=== PATIENT | male | born 1970 | race Caucasian/White ===

== ENCOUNTER 2017-11-14 10:43 | Day surgery (SDC) | payer OTHER ==
--- NOTE | 2017-11-12 11:50 | EKG ---
Test Date: 2017-11-11 Test Time: 17:09:40 Court Bailiff: ACACIA MEASUREMENT RESULTS: Intervals: Rate: 62 NC: 166 QRSD: 116 QT: 404 QTc: 410 [place]: P: 51 NC: 166 QRS: 13 T: 33 INTERPRETIVE STATEMENTS: Normal sinus rhythm Possible Left atrial enlargement Borderline ECG No previous ECG available for comparison Electronically Signed On 11-12-17 11:46:39 CDT by Iam Jacobson
[2017-11-14] MEDS ORDERED: PROPOFOL 200 MG/20 ML VIAL IV ONE (10:55)
[2017-11-14] MEDS ORDERED: DEXAMETHASONE 10 MG/ML VIAL ONE (10:55)
[2017-11-14] MEDS ORDERED: ROCURONIUM 50 MG/5 ML VIAL IV ONE (10:55)
[2017-11-14] MEDS ORDERED: MIDAZOLAM HCL 2 MG/2 ML INJ ONE (10:56)
[2017-11-14] MEDS ORDERED: LIDOCAINE 2% MPF 5 ML VIAL ONE (10:56)
[2017-11-14] MEDS ORDERED: ONDANSETRON HCL 40 MG/20 ML VIAL ONE (10:56)
[2017-11-14] MEDS ORDERED: FENTANYL CITR 250 MCG/5 ML ONE (10:56)
[2017-11-14] MEDS: OXYMETAZOLINE HCL 0.05% 30ML NAS ONE ×5 (11:08→12:24)
[2017-11-14] MEDS: NA CHLORIDE 0.9% 1,000 ML ONE ×2 (11:13→11:48)
[2017-11-14] MEDS ORDERED: LIDOCAINE 1% W/EPI 1:100,000 MDV 50 ML VIAL ONE (11:52)
[2017-11-14] MEDS ORDERED: OXYMETAZOLINE HCL 0.05% 30ML NAS ONE ×3 (11:52→13:39)
[2017-11-14] MEDS ORDERED: NA CHLORIDE 0.9% 500 ML ONE (11:52)
[2017-11-14] MEDS ORDERED: GLYCOPYRROLATE 0.2 MG/ML SYR ONE (12:43)
[2017-11-14] MEDS ORDERED: Ringers Lactate 1,000 ML IV ONE (12:46)
[2017-11-14] MEDS ORDERED: MORPHINE 4 MG/ML SYR ONE (14:23)
[2017-11-14] MEDS ORDERED: HYDROCODONE/APAP 5/325 MG TAB ONE (15:14)
--- NOTE | 2017-11-15 23:28 | OP ---
Date of Procedure: 11/14/2017 Surgeon: Jennifer Irwin MD Preoperative Diagnoses: Chronic recurrent acute sinusitis, mikey bullosa, nasal congestion and obst ruction. Postoperative Diagnoses: Chronic recurrent acute sinusitis, mikey bullosa, nasal congestion and obs truction. Procedure: Nasal endoscopy with bilateral frontal sinusotomy; nasal endoscopy with bilateral anterio r ethmoidectomy; nasal endoscopy with bilateral maxillary sinusotomy, use of CT navigation, cranial, extradural. Indication For Procedure: Charles Toney presented with symptoms of chronic rhinosinusitis and na roxanne congestion. The post treatment CT of the sinuses demonstrated accessory maxillary os, mild anter ior ethmoid sinusitis, and obstruction of the frontal recess. 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 The risks, benefits, and alternatives to the pro cedure were discussed with the patient who agreed to proceed. The patient did not reveal he was taki ng aspirin during his initial intake and evaluations and was asked to stop aspirin at his preop visit 48 hours prior to his surgery. Description Of Procedure: The patient was brought to the operating room. He was placed under genera l anesthesia via oral endotracheal tube. The head of bed was turned to 90 degrees. The nasal hairs were trimmed and the nasal cavity was packed with Afrin-soaked pledgets. The [employer] navigation was brought into the field. The headpiece was secured to the patient's forehead. The laser pointer was used to perform registration and accuracy was confirmed by [id number] matching including the tip of the nose, the base of the columella, the glabella, and the bilateral medial and lateral canthi, a nd accuracy was felt to be very good. The patient was then draped in the standard fashion for sinus surgery. Nasal pledgets were removed and a 0-degree rigid endoscope was used to perform a nasal endo scopy. On the left, there was a low prominent maxillary crest. The inferior turbinates were unremar kable. The middle turbinate was quite wide and mildly edematous consistent with preoperative finding s of a large mikey bullosa. On the left side, there was a high bony septal deviation, but the devia tion overall was moderate and did not appear likely to inhibit sinus surgery in significant way. 1% lidocaine with epinephrine was injected into the middle turbinate and lateral wall. Attention was fi rst turned to the left side. A sickle knife was used to incise through the mikey bullosa. Endoscop ic scissors and a through-cutting 45 degree Blakesley was used to remove the lateral portion of the m iddle turbinates mikey. It was noted during this initial procedure that the patient has greater natalie n average oozing consistent with recent aspirin use. The middle meatus was packed with Afrin-soaked pledgets and left in place for several minutes. The pledgets were removed and then microdebrider was used to refine the cut edges from the mikey bullosa. The uncinate process was then visualized and examined. It appears somewhat lateralized and there was a moderate-sized natural accessory os. A ma xillary seeker was used to carefully palpate and medialize the uncinate. A backbiter was then used t o remove the uncinate process along with a 90-degree Blakesley. A 90-degree Blakesley and a microdeb rider was used to remove the tissue between the natural and accessory os in order to prevent recircul ation. After adequate removal, the area was packed with Afrin-soaked pledgets to provide hemostasis. The right side was then examined. The mikey bullosa on the right side was relatively small. A Fr eer was used to medialize the middle turbinate with fracturing of the mikey in order to reduce the s ize of the middle turbinate. Overall, the front portion of the middle turbinate was somewhat floppy creating mild difficulty during various portions of the dissection. The middle meatus was packed wit h Afrin-soaked pledgets and this was allowed to rest well while the further dissection on the left si de proceeded. The packing on the left side was removed and the ethmoid partitions were divided using a curette. Partitions were removed using a straight 45 and 90-degree Blakesley. During dissection, the navigation system was used to guide further dissections, particularly along the lamina. The ant erior portion of the skull base was visualized after removal of ethmoid partitions. Using a 30 and t hen 70-degree endoscopes, the frontal recess region was visualized but was difficult to palpate the t rue frontal recess. The [employer] balloon was then brought as a tool. The small lighted guidewire wa s passed with careful palpation through the frontal recess illuminating the frontal sinus brilliantly . The balloon was then dilated and held in place for several minutes. The balloon was then deflated and the 70-degree endoscope was used to visualize this area. There was a small ethmoid cell which w as more lateral and the true frontal recess was located more medially than initially anticipated. Sm all bony partitions between the ethmoid cell and the true frontal recess were removed using Giraffe f orceps. The ethmoid cavity was then packed with Afrin-soaked pledgets and attention was turned to th e right side. Dissection on the right side was complicated by the narrowness of the nasal cavity, th e floppiness of the right middle turbinate, and the patient's recent ingestion of aspirin contributin g to increased degree of oozing. The right side was noted to have a moderate-sized accessory os just inferior to the uncinate process. The uncinate process was carefully medialized using a maxillary s eeker. The backbiter and 90-degree Blakesley were used to remove the uncinate process and tissue bet ween the natural os and accessory os was removed using a 90-degree Blakesley and microdebrider. The ethmoid cavity was then carefully dissected with a curette and bony partitions were removed from the anterior ethmoid cavity using a straight 45 and 90-degree Blakesley. The 30 and 70-degree endoscopes were then used to help remove ethmoid partitions working towards the frontal recess. The frontal re cess was carefully dissected. The Entellus balloon device was used to confirm patency on the CT scan . The superiormost aspect of the frontal recess was noted to be narrowed due to the presence of narr ow distance between the posterior tragal or skull base and a superiorly based frontal beak like forma tion. Due to the narrowness of this, balloon dilation was not performed due to concern for disruptio n of the skull base on the posterior table with risk of injury. The area was felt to be adequately t reated without specific dilation. Afrin-soaked pledgets were packed into the nasal cavity and allowe d to rest for several minutes. After removal, the oozing was significantly decreased. A Propel mini stent was placed into the ethmoid cavities bilaterally to avoid lateralization of the middle turbina te. The nasopharynx was suctioned. The nasal cavity and sinuses were then irrigated with several al iquots of sterile saline. After final suctioning, the patient was returned to care of anesthesia for awakening and extubation in the operating room, which proceeded without difficulty. Disposition: The patient will be discharged home later today in the care of his family and follow up with Dr. Irwin in 10-12 days for splint removal and debridement as indicated. YANDEL/MAVIS Voice ID: [id number] Report ID: [id number]
== END 2017-11-14 15:40 | disposition home or self-care (01) ==
LOC: OR 10:43
PROVIDERS: ATTEND Otolaryngology
PROC: 09BV8ZZ Excision of Left Ethmoid Sinus, Via Natural or Artificial Opening Endoscopic (ICD-10-PCS; 2017-11-14)
PROC: 09BU8ZZ Excision of Right Ethmoid Sinus, Via Natural or Artificial Opening Endoscopic (ICD-10-PCS; 2017-11-14)
PROC: 8E09XBG Computer Assisted Procedure of Head and Neck Region, With Computerized Tomography (ICD-10-PCS; 2017-11-14)
PROC: 8E09XBZ Computer Assisted Procedure of Head and Neck Region (ICD-10-PCS; principal; 2017-11-14 12:30)
DX: J01.91 Acute recurrent sinusitis, unspecified (principal); J32.9 Chronic sinusitis, unspecified; J34.2 Deviated nasal septum; J34.89 Other specified disorders of nose and nasal sinuses; R09.81 Nasal congestion; R09.82 Postnasal drip; Z83.3 Family history of diabetes mellitus; Z82.3 Family history of stroke; Z82.49 Family history of ischemic heart disease and other diseases of the circulatory system; E11.9 Type 2 diabetes mellitus without complications; Z88.6 Allergy status to analgesic agent
CPT/HCPCS: 82962; 88304; 88311; 93005; J1100; J2250; J2405; J7030